=== PATIENT | female | born 2000 | race American Indian/Alaskan Native ===

== ENCOUNTER 2020-04-01 09:30 | Outpatient (CLI) | payer OTHER ==
[2020-04-01 10:06] VITALS: BP 108/66
== END 2020-04-01 10:39 | disposition home or self-care (01) ==
LOC: TRG 09:30 → APU 09:31 → TRG 10:39
PROVIDERS: ATTEND Obstetrics & Gynecology
DX: O26.853 Spotting complicating pregnancy, third trimester (principal); Z3A.34 34 weeks gestation of pregnancy
CPT/HCPCS: 59025

== ENCOUNTER 2020-04-24 17:57 | Inpatient (IN) | payer OTHER ==
[2020-04-24] MEDS ORDERED: METHYLERGONOVINE MALEATE 0.2 MG/ML VIAL IM PRN (19:13)
[2020-04-24] MEDS ORDERED: miSOPROStol 200 MCG TAB PR PRN (19:13)
[2020-04-24] MEDS ORDERED: TERBUTALINE 1 MG/1 ML INJ SUB-Q PRN (19:13)
[2020-04-24] MEDS ORDERED: MINERAL OIL 30 ML ORAL LIQD PO PRN (19:13)
[2020-04-24] MEDS ORDERED: NALOXONE 0.4 MG/1 ML INJ IV PRN (19:13)
[2020-04-24] MEDS ORDERED: fentaNYL 100 MCG/2 ML INJ IV PRN (19:13)
[2020-04-24] MEDS ORDERED: PROMETHAZINE 25 MG TAB PO PRN (19:13)
[2020-04-24] MEDS ORDERED: ONDANSETRON 4 MG/2 ML INJ IV PRN (19:13)
[2020-04-24] MEDS ORDERED: ePHEDrine SULFATE 50 MG/1 ML INJ IV PRN (19:13)
[2020-04-24] MEDS ORDERED: BUTORPHANOL 2 MG/1 ML INJ IV PRN ×2 (19:13)
[2020-04-24] MEDS ORDERED: AMPICILLIN/NS 2 GM/100 ML 2 GM/100 ML BAG IV ONE (19:13)
[2020-04-24] MEDS ORDERED: LIDOCAINE (2%) 20 MG/1 ML VIAL 20 ML MDV INFILTRATI ONE (19:13)
[2020-04-24] MEDS ORDERED: OXYTOCIN DRIP 30 UNITS/500 ML BAG IV SCH ×2 (20:00)
[2020-04-24] MEDS ORDERED: LACTATED RINGERS 1,000 ML IV SCH (20:00)
[2020-04-24 20:41] LABS: Hematocrit 29.2 % (30.3-42.9); Hemoglobin 10.1 gm/dl (10.1-14.3); Mean Corpuscular HGB Conc 35 % (30-34); Mean Corpuscular Volume 86 fl (79-97); Platelet Count 208 K/mm3 (140-440); Red Blood Count 3.38 M/mm3 (3.65-5.03); Red Cell Distribution Width 14.3 % (13.2-15.2)
[2020-04-24] MEDS ORDERED: AMPICILLIN/NS 1 GM/50 ML 1 GM/50 ML BAG IV SCH (23:16)
[2020-04-25] MEDS ORDERED: LIDOCAINE (2%) 20 MG/1 ML VIAL 20 ML MDV INFILTRATI ONE (01:26)
[2020-04-25] MEDS ORDERED: MAGNESIUM HYDROXIDE (MOM) ORAL LIQD UDC PO PRN (01:58)
[2020-04-25] MEDS ORDERED: WITCH HAZEL/ GLYCERIN PAD TP PRN (01:58)
[2020-04-25] MEDS ORDERED: LANOLIN/ZINC/DIMETHICONE (LANSINOH) 7 GM TP PRN (01:58)
[2020-04-25] MEDS ORDERED: diphenhydrAMINE 25 MG CAP PO PRN (01:58)
[2020-04-25] MEDS ORDERED: PROMETHAZINE 25 MG RECT SUPP PR PRN (01:58)
[2020-04-25] MEDS ORDERED: ONDANSETRON 4 MG/2 ML INJ IV PRN (01:58)
[2020-04-25] MEDS ORDERED: PROMETHAZINE 25 MG TAB PO PRN (01:58)
--- NOTE | 2020-04-25 01:58 | History and Physical Report ---
History of Present Illness Date of examination: 04/25/20 Date of admission: 04/24/20 19:14 Chief complaint: "my water broke" History of present illness: 19 yo at 38w2d EGA who presents reporting leaking fluid since 1230 on 04/24. She reports positive movement and denies vaginal bleeding or regular uterine contractions. She has received care with [facility]. Her course has been complicated by Chlamydia with negative test of cure, and sickle cell trait. She is GBS positive. Past History Past Medical History: no pertinent history Past Surgical History: no surgical history [employer] History: chlamydia (treated this ) Social history: no significant social history - Obstetrical History Expected Date of Delivery: 05/07/20 Actual Gestation: 38 Week(s) 2 Day(s) : 2 Para: 1 Hx # Term Pregnancies: 1 Number of Living Children: 1 Medications and Allergies Allergies Allergy/AdvReac Type Severity Reaction Status Date / Time No Known Allergies Allergy Verified 11/21/15 23:30 Home Medications Medication Instructions Recorded Confirmed Last Taken Type No Known Home Medications [No 04/24/20 04/24/20 Unknown History Reported Home Medications] Active Meds: Active Medications Butorphanol Tartrate (Stadol) 1 mg IV Q2H PRN PRN Reason: Pain, Moderate(4-6) LABOR PAIN Butorphanol Tartrate (Stadol) 2 mg IV Q2H PRN PRN Reason: Pain , Severe (7-10) Last Admin: 04/24/20 23:12 Dose: 2 mg Documented by: Ephedrine Sulfate (Ephedrine Sulfate) 10 mg IV Q2M PRN PRN Reason: Hypotension Fentanyl (Sublimaze) 100 mcg IV Q2H PRN PRN Reason: Pain,Severe (7-10) LABOR PAIN Oxytocin/Sodium Chloride (Pitocin/Ns 30 Unit/500ml) 30 units in 500 mls @ 2 mls/hr IV TITR ROYCE; Protocol Lactated Ringer's (Lactated Ringers) 1,000 mls @ 125 mls/hr IV DIRECT [facility]YCE Oxytocin/Sodium Chloride (Pitocin/Ns 30 Unit/500ml) 30 units in 500 mls @ 40 mls/hr IV PRN ROYCE; Protocol Stop: 04/25/20 08:29 Ampicillin Sodium (Ampicillin/Ns 1 Gm/50 Ml) 1 gm in 50 mls @ 100 mls/hr IV Q4HR [facility]; Protocol Last Admin: 04/25/20 00:45 Dose: 100 mls/hr Documented by: Methylergonovine Maleate (Methergine) 0.2 mg IM ONCE PRN PRN Reason: Uterine Bleeding Mineral Oil (Mineral Oil) 30 ml PO QHS PRN PRN Reason: Constipation Misoprostol (Cytotec) 800 mcg MO ONCE PRN PRN Reason: Uterine Bleeding Naloxone HCl (Naloxone) 0.1 mg IV Q2MIN PRN PRN Reason: Res Rate </= 8 or 02 SAT < 92% Ondansetron HCl (Zofran) 4 mg IV Q8H PRN PRN Reason: Nausea And Vomiting Promethazine HCl (Phenergan) 25 mg PO Q6H PRN PRN Reason: Nausea And Vomiting Terbutaline Sulfate (Brethine) 0.25 mg SUB-Q ONCE PRN PRN Reason: Hyperstimulation/Hypertonicity Review of Systems All systems: negative Genitourinary: leakage of fluid, contractions, no vaginal bleeding - Vital Signs Vital signs: Vital Signs Temp Resp 98.7 F 18 04/24/20 18:35 04/24/20 18:35 Temp Pulse Resp BP Pulse Ox 98.9 F 100 H 18 122/60 04/24/20 22:10 04/25/20 01:47 04/24/20 23:12 04/25/20 01:47 - Physical Exam Lungs: Positive: Normal air movement Abdomen: Positive: soft Genitourinary (Female): Positive: normal external genitalia. Negative: perineal/vulvar lesions Uterus: Positive: enlarged (gravid) Extremities: Positive: normal - Obstetrical FHR: category 1 Uterine Contraction Monitor Mode: External Cervical Dilatation: 2.5 (per RN at 1900) Cervical Effacement Percentage: 80 station: -3 Uterine Contraction Pattern: Irregular Uterine Tone Measurement Phase: Contraction Uterine Contraction Intensity: Strong/Firm Results Result Diagrams: 04/24/20 20:25 Abnormal lab results 04/24/20 Range/Units 20:25 RBC 3.38 L (3.65-5.03) M/mm3 Hct 29.2 L (30.3-42.9) % MCHC 35 H (30-34) % All other labs normal. Assessment and Plan A: 19 yo at 38w2d EGA Membranes ruptured since 1230 on 04/24 GBS positive P: Admit to L&D Ampicillin prophylaxis Augmentation with Pitocin Anticipate
--- NOTE | 2020-04-25 01:58 | Procedure Note ---
OB Delivery Note - Delivery Date of Delivery: 04/25/20 Estimated blood loss: 300cc - Vaginal Delivery position: OA Intrapartum events: none Delivery induction: none Delivery augmentation: pitocin Delivery monitor: external FHT, external uterine Route of delivery: Delivery placenta: spontaneous Delivery cord: 3 umbilical vessels Episiotomy: none Delivery laceration: none Anesthesia: none Delivery comments: Excellent maternal effort, progressed to of viable male infant over intact perineum. Head delivered OA restituted LOT en caul, shoulders followed easily. Infant to maternal abdomen, delayed cord clamping, clamped and cut by FOB. Apgars 8/9. Placenta delivered spontaneously and intact, trailing membranes. No lacerations noted. Brisk bleeding resolved with pitocin, fundal massage, manual sweep of lower uterine segment and Cytotec 800 mcgs MD. EBL 300 mL. Mother and infant bonding well, breast feeding. weight 6lbs 1oz. - A at 1 minute: 8 at 5 minutes: 9 Infant Gender: Male
[2020-04-25] MEDS ORDERED: IBUPROFEN 600 MG TAB PO SCH (02:00)
[2020-04-25] MEDS: IBUPROFEN ORAL LIQD 100 MG/5 ML ORAL.LIQD PO PRN ×2 (03:16→09:52)
--- NOTE | 2020-04-25 08:03 | Progress Note ---
Assessment and Plan - Patient Problems (1) Normal spontaneous vaginal delivery Current Visit: Yes Status: Acute Plan to address problem: Patient is doing well Routine care Discharge home tomorrow Subjective - Subjective Date of service: 04/25/20 Interval history: Patient is status post normal spontaneous vaginal delivery. She is without any significant complaints. Patient reports: appetite normal, voiding normally, pain well controlled : doing well Objective - Vital Signs Latest vital signs: Vital Signs Temp Pulse Resp BP BP Pulse Ox 04/25/20 03:30 98.4 F 88 20 107/46 98 04/25/20 03:17 93 H 116/73 04/25/20 03:16 18 04/25/20 03:15 98.8 F 04/25/20 03:02 83 107/58 04/25/20 02:48 75 113/55 04/25/20 02:18 101 H 130/58 04/25/20 02:02 101 H 123/66 04/25/20 01:47 100 H 122/60 04/25/20 00:12 18 04/25/20 00:10 98.8 F 04/24/20 23:12 18 04/24/20 22:10 98.9 F 04/24/20 20:10 98.9 F 04/24/20 18:37 93 H 132/73 04/24/20 18:35 98.7 F 18 Intake and Output 04/24/20 04/25/20 04/25/20 22:59 06:59 14:59 Other: Weight 66.678 kg Estimated Blood Loss 300 - Exam Abdomen: Present: normal appearance, soft - Labs Labs: Abnormal lab results 04/24/20 Range/Units 20:25 RBC 3.38 L (3.65-5.03) M/mm3 Hct 29.2 L (30.3-42.9) % MCHC 35 H (30-34) %
--- NOTE | 2020-04-25 08:04 | Discharge Summary ---
Providers - Providers Date of Admission: 04/24/20 19:14 Date of discharge: 04/26/20 Attending physician: GEOVANY DOWNEY Primary care physician: SIN GRANT Hospitalization Reason for admission: active labor Delivery: Discharge diagnosis: IUP at term delivered Hospital course: The patient was admitted in active labor and had a spontaneous vaginal delivery. Her course was uneventful. Condition at discharge: Good Disposition: DC-01 TO HOME OR SELFCARE - Discharge Diagnoses (1) Normal spontaneous vaginal delivery Status: Acute Plan - Discharge Medications Prescriptions: Ibuprofen [Motrin] 800 mg PO Q8HR PRN #30 tablet PRN Reason: Pain , Severe (7-10) HYDROcodone/APAP 5-325 [Clever 5/325] 1 each PO Q6HR PRN #15 tablet PRN Reason: Pain - Provider Discharge Summary Activity: no sex for 6 weeks, no heavy lifting 4 weeks, no strenuous exercise Diet: routine Instructions: routine Additional instructions: [] Smoking cessation referral if applicable(refer to patient education folder for contact #) [] Refer to [facility]'s [facility] Booklet Call your doctor immediately for: * Fever > 100.5 * Heavy vaginal bleeding ( >1 pad per hour) * Severe persistent headache * Shortness of breath * Reddened, hot, painful area to leg or breast * Schedule visit in 4 weeks - Follow up plan
[2020-04-25 17:14] LABS: Hematocrit 28.1 % (30.3-42.9); Hemoglobin 9.6 gm/dl (10.1-14.3)
[2020-04-26] MEDS: IBUPROFEN ORAL LIQD 100 MG/5 ML ORAL.LIQD PO PRN (08:13)
[2020-04-26 13:28] VITALS: BP 109/69
== END 2020-04-26 14:15 | disposition home or self-care (01) | DRG 807 ==
LOC: TRG 17:57 → APU 17:59 → TRG 19:14 → LD 19:14 → OB 04-25 04:28
PROVIDERS: ADMIT Obstetrics & Gynecology; ATTEND Obstetrics & Gynecology
PROC: 10E0XZZ Delivery of Products of Conception, External Approach (ICD-10-PCS; principal; 2020-04-25)
PROC: 3E0P7VZ Introduction of Hormone into Female Reproductive, Via Natural or Artificial Opening (ICD-10-PCS; 2020-04-25)
DX: O99.824 Streptococcus B carrier state complicating childbirth (principal); Z37.0 Single live birth; Z20.828 Contact with and (suspected) exposure to other viral communicable diseases; Z3A.38 38 weeks gestation of pregnancy
CPT/HCPCS: 36415; 59025; 85014; 85018; 85027; 86592; 86850; 86900; 86901; G0378; J0290; J0595; J2590; J7120; U0003